=== PATIENT | female | born 1965 | race Caucasian/White ===

== ENCOUNTER 2024-04-03 03:23 | Inpatient (IN) | payer OTHER ==
[2024-04-03] MEDS: SODIUM CHLORIDE 0.9% 1,000 ML IV STA (03:56)
[2024-04-03] MEDS: METOCLOPRAMIDE 5 MG/ML 2 ML VIAL IVP STA (03:56)
[2024-04-03] MEDS: ACETAMINOPHEN IV (For NPO) 1,000 MG in EMPTY BAG 1 BAG IVPB ONE (03:58)
[2024-04-03] MEDS: HYDROmorphone 0.5 MG/0.5 ML SYRINGE IVP STA ×2 (03:58→06:29)
--- NOTE | 2024-04-03 04:02 | ED ---
General Adult HPI - General Chief complaint: Headache Stated complaint: Neuro Time Seen by Provider: 04/03/24 03:27 Source: patient, RN notes reviewed, old records reviewed Mode of arrival: wheelchair Limitations: no limitations - History of Present Illness Initial comments: 58-year-old female presenting with headache for the past 1 week. Patient was s een by primary care and CT as well as CT angiography was ordered to rule out hemorrhage. Patient states that 1 week ago she developed sudden onset severe headache with associated nausea and vomiting. This is a frontal headache and has been constant since that time. Patient denies focal numbness or weakness. She denies fever. Denies respiratory symptoms. Denies vision changes. Denies prior history of aneurysm or intracranial hemorrhage. - Related Data Allergies Allergy/AdvReac Type Severity Reaction Status Date / Time No Known Allergies Allergy Verified 04/03/24 03:33 Review of Systems ROS Statement: Those systems with pertinent positive or pertinent negative responses have been documented in the HPI. ROS Other: All systems not noted in ROS Statement are negative. Past Medical History Past Medical History: Hyperlipidemia History of Any Multi-Drug Resistant Organisms: None Reported Past Surgical History: Cholecystectomy, Orthopedic Surgery Past Psychological History: Anxiety Smoking Status: Former smoker Past Alcohol Use History: None Reported Past Drug Use History: None Reported General Exam Limitations: no limitations General appearance: alert, in no apparent distress Head exam: Present: atraumatic, normocephalic Eye exam: Present: normal appearance, PERRL ENT exam: Present: normal exam Neck exam: Present: normal inspection. Absent: tenderness, meningismus Respiratory exam: Present: normal lung sounds bilaterally. Absent: respiratory distress, wheezes Cardiovascular Exam: Present: regular rate, normal rhythm GI/Abdominal exam: Present: soft. Absent: distended, tenderness, guarding Neurological exam: Present: alert, oriented X3, CN II-XII intact. Absent: motor sensory deficit Psychiatric exam: Present: normal affect, normal mood Skin exam: Present: warm, dry, intact. Absent: cyanosis, diaphoretic Course Vital Signs 04/03/24 04/03/24 03:28 05:37 Temperature 98.3 F Pulse Rate 81 81 Respiratory 18 18 Rate Blood Pressure 172/118 157/82 O2 Sat by Pulse 96 94 L Oximetry Medical Decision Making - Medical Decision Making Was pt. sent in by a medical professional or institution (, PA, SPEAKING UNIT ASSEMBLER, urgent care, hospital, or half-way...) When possible be specific @ -No Did you speak to anyone other than the patient for history (EMS, parent, family, police, friend...)? What history was obtained from this source @ -No Did you review nursing and triage notes (agree or disagree)? Why? @ -I reviewed and agree with nursing and triage notes Were old charts reviewed (outside hosp., previous admission, EMS record, old EKG, old radiological studies, urgent care reports/EKG's, half-way records)? Report findings @ -No old charts were reviewed Differential Headache: Migraine, tension, cluster, carbon monoxide, central venous thrombosis, pension karma temporal arteritis, acute closure glaucoma, intercranial hemorrhage, mastoiditis, sinusitis, head injury, this is not meant to be an all-inclusive list. EKG interpreted by me (3pts min.). @ -As above X-rays interpreted by me (1pt min.). @ -None done CT interpreted by me (1pt min.). @CT brain negative for intracranial hemorrhage, CT angiography of the [place] negative for aneurysm U/S interpreted by me (1pt. min.). @ -None done What testing was considered but not performed or refused? (CT, X-rays, U/S, labs)? Why? @ -None What meds were considered but not given or refused? Why? @ -None Did you discuss the management of the patient with other professionals (professionals i.e. LAUREN Salguero, SPEAKING UNIT ASSEMBLER, lab, RT, psych nurse, social insurance analyst, missionary coordinator, teacher, marketing officer, complex case manager)? Give summary @ -EMH Was smoking cessation discussed for >3mins.? @ -No Was critical care preformed (if so, how long)? @ -No Were there social determinants of health that impacted care today? How? (Homelessness, low income, unemployed, alcoholism, drug addiction, transportation, low edu. Level, literacy, decrease access to med. care, snf, rehab)? @ -No Was there de-escalation of care discussed even if they declined (Discuss DNR or withdrawal of care, Hospice)? DNR status @ -No What co-morbidities impacted this encounter? (DM, HTN, Smoking, COPD, CAD, Cancer, CVA, ARF, Chemo, Hep., AIDS, mental health diagnosis, sleep apnea, morbid obesity)? @ -None Was patient admitted / discharged? Hospital course, mention meds given and route, prescriptions, significant lab abnormalities, going to OR and other pertinent info. @ --year-old female presenting with severe headache which began 1 week ago [id number]. Patient does not have prior headache history. She was seen by her primary care and outpatient CT and CT angiography of the [place] was ordered however the patient was unable to schedule these tests and was having severe symptoms. No focal neurologic findings on exam. Initial blood pressure is quite elevated. CT and CT angiography are ordered which are negative for intracranial hemorrhage and negative for aneurysmal change. Patient continues to be symptomatic with moderate to severe headache in the emergency department. She will be admitted for symptom control and neurology consultation. Undiagnosed new problem with uncertain prognosis? @ -No Drug Therapy requiring intensive monitoring for toxicity (Heparin, Nitro, In sulin, Cardizem)? @ -No Were any procedures done? @ -No Diagnosis/symptom? @Severe headache Acute, or Chronic, or Acute on Chronic? @ -[Acute Uncomplicated (without systemic symptoms) or Complicated (systemic symptoms)? @ -Default Side effects of treatment? @ -No Exacerbation, Progression, or Severe Exacerbation? @ -No Poses a threat to life or bodily function? How? (Chest pain, [place], [place], pneumonia, PE, COPD, DKA, ARF, appy, cholecystitis, CVA, Diverticulitis, Homicidal, Suicidal, threat to staff... and all critical care pts) @ -Moderate risk, new onset severe headache - Lab Data Result diagrams: 04/03/24 04:10 04/03/24 04:10 Lab Results 04/03/24 04/03/24 04/03/24 Range/Units 04:10 04:10 04:10 WBC 14.5 H (3.8-10.6) k/uL RBC 5.07 (3.80-5.40) m/uL Hgb 15.7 (11.4-16.0) gm/dL Hct 48.1 H (34.0-46.0) % MCV 94.9 (80.0-100.0) fL MCH 30.9 (25.0-35.0) pg MCHC 32.6 (31.0-37.0) g/dL RDW 12.9 (11.5-15.5) % Plt Count 285 (150-450) k/uL MPV 7.9 Neutrophils % 73 % Lymphocytes % 20 % Monocytes % 4 % Eosinophils % 2 % Basophils % 1 % Neutrophils # 10.6 H (1.3-7.7) k/uL Lymphocytes # 2.9 (1.0-4.8) k/uL Monocytes # 0.5 (0-1.0) k/uL Eosinophils # 0.2 (0-0.7) k/uL Basophils # 0.1 (0-0.2) k/uL PT 10.1 (10.0-12.5) sec INR 0.9 (<1.2) APTT 21.8 L (22.0-30.0) sec Sodium 139 (137-145) mmol/L Potassium 3.9 (3.5-5.1) mmol/L Chloride 104 (98-107) mmol/L Carbon Dioxide 27 (22-30) mmol/L Anion Gap 8 mmol/L BUN 22 H (7-17) mg/dL Creatinine 0.57 (0.52-1.04) mg/dL Est GFR (CKD-EPI)AfAm >90 (>60 ml/min/1.73 sqM) Est GFR (CKD-EPI)NonAf >90 (>60 ml/min/1.73 sqM) Glucose 117 H (74-99) mg/dL Calcium 9.2 (8.4-10.2) mg/dL Magnesium 1.9 (1.6-2.3) mg/dL Total Bilirubin 0.5 (0.2-1.3) mg/dL AST 23 (14-36) U/L ALT 33 (4-34) U/L Alkaline Phosphatase 84 (38-126) U/L Total Protein 6.8 (6.3-8.2) g/dL Albumin 4.2 (3.5-5.0) g/dL Disposition Clinical Impression: Headache, Intractable headache Dis[facility] Condition: Stable Is patient prescribed a controlled substance at d/c from ED?: No Referrals: Castillo Brower DO [Primary Care Provider] - 1-2 days Time of Disposition: 06:16
[2024-04-03 04:28] LABS: Basophils # (A) 0.1 k/uL (0-0.2); Basophils % (A) 1 %; Eosinophils # (A) 0.2 k/uL (0-0.7); Eosinophils % (A) 2 %; HCT 48.1 % (34.0-46.0); HGB 15.7 gm/dL (11.4-16.0); Lymphocytes # (A) 2.9 k/uL (1.0-4.8); Lymphocytes % (A) 20 %; MCH 30.9 pg (25.0-35.0); MCHC 32.6 g/dL (31.0-37.0); MCV 94.9 fL (80.0-100.0); Mean Platelet Volume 7.9; Monocytes # (A) 0.5 k/uL (0-1.0); Monocytes % (A) 4 %; Neutrophils # (A) 10.6 k/uL (1.3-7.7); Neutrophils % (A) 73 %; Platelet Count 285 k/uL (150-450); RBC 5.07 m/uL (3.80-5.40); RDW 12.9 % (11.5-15.5); WBC 14.5 k/uL (3.8-10.6)
[2024-04-03 04:37] LABS: ALT 33 U/L (4-34); AST 23 U/L (14-36); African American GFR (CKD) >90 (>60 ml/min/1.73 sqM); Albumin 4.2 g/dL (3.5-5.0); Alkaline Phosphatase 84 U/L (38-126); Anion Gap 8 mmol/L; Blood Urea Nitrogen 22 mg/dL (7-17); Calcium 9.2 mg/dL (8.4-10.2); Carbon Dioxide 27 mmol/L (22-30); Chloride 104 mmol/L (98-107); Glucose 117 mg/dL (74-99); Magnesium 1.9 mg/dL (1.6-2.3); Non-African American GFR(CKD) >90 (>60 ml/min/1.73 sqM); Potassium 3.9 mmol/L (3.5-5.1); Sodium 139 mmol/L (137-145); Total Bilirubin 0.5 mg/dL (0.2-1.3); Total Protein 6.8 g/dL (6.3-8.2)
[2024-04-03 04:40] LABS: INR 0.9 (<1.2); Prothrombin Time 10.1 sec (10.0-12.5)
[2024-04-03 04:46] LABS: Partial Thromboplastin Time 21.8 sec (22.0-30.0)
--- NOTE | 2024-04-03 05:36 | CT ---
EXAM: CT Head Without Intravenous Contrast CLINICAL HISTORY: ITS.REASON CT Reason: Headache severe TECHNIQUE: Axial computed tomography images of the head/brain without intravenous contrast. CTDI is 48.9 mGy and DLP is 1222 mGy-cm. This CT exam was performed using one or more of the following dose reduction techniques: automated exposure control, adjustment of the mA and/or kV according to patient size, and/or use of iterative reconstruction technique. COMPARISON: No relevant prior studies available. FINDINGS: Brain: No hemorrhage or mass effect. Ventricles: No hydrocephalus. Bones/joints: Unremarkable. Soft tissues: Unremarkable. Sinuses: No air fluid level. Mastoid air cells: Clear. IMPRESSION: No acute hemorrhage, hydrocephalus, or mass effect.
--- NOTE | 2024-04-03 06:02 | CT ---
EXAMINATION TYPE: CT angio [place] DATE OF EXAM: 04/03/2024 4:53 AM COMPARISON: CT brain earlier today HISTORY: Severe headache with nausea and vomiting CT DLP: 1226 mGycm Automated exposure control for dose reduction was used. TECHNIQUE: Performed with IV Contrast, patient injected with 100 mL of Isovue 300. 3D reconstructed images are created on an independent workstation and reviewed.. FINDINGS: Vertebral arteries are patent to the basilar junction. Right vertebral artery is dominant. Hypoplasti c right P1 segment with filling of the right P2 segment due to patent right-sided posterior communica ting artery. Hypoplastic or poorly visualized anterior communicating artery. No large vessel occlusio n at level of [place]. The [place] cerebral veins are noted. IMPRESSION: NO LARGE VESSEL OCCLUSION OR ANEURYSM AT THE LEVEL OF THE [place]. [facility], , 04/03/2024 6:00 AM
[2024-04-03] MEDS ORDERED: NALOXONE 0.4 MG/ML 1 ML VIAL IV PRN (06:12)
[2024-04-03] MEDS ORDERED: HYDROmorphone 0.5 MG/0.5 ML SYRINGE IVP PRN (06:12)
[2024-04-03] MEDS: SODIUM CHLORIDE 0.9% 1,000 ML IV SCH (06:29)
[2024-04-03] MEDS: MAGNESIUM SULFATE-D5W PMX 1 GM in DEXTROSE/WATER 1 100ML.BAG IVPB ONE (06:30)
[2024-04-03 07:29] LABS: Influenza A Not Detected (Not Detectd); Influenza B Not Detected (Not Detectd); RSV Not Detected (Not Detectd)
[2024-04-03] MEDS: HYDROmorphone 1 MG/ML 1 ML SYRINGE IVP PRN (09:15)
[2024-04-03] MEDS ORDERED: HYDROcodone/APAP 5-325MG 1 EACH TAB PO PRN (11:17)
[2024-04-03] MEDS ORDERED: diphenhydrAMINE 50 MG/ML 1 ML VIAL IVP PRN (11:23)
[2024-04-03] MEDS: diphenhydrAMINE 50 MG/ML 1 ML VIAL IVP STA (11:47)
[2024-04-03] MEDS: BUTALB/APAP/CAFF 50-325-40MG TAB PO PRN (11:47)
[2024-04-03] MEDS: METOCLOPRAMIDE 5 MG/ML 2 ML VIAL IVP PRN (11:47)
[2024-04-03 12:17] LABS: Glucose,Whole Blood 119 mg/dL (70-110)
[2024-04-03] MEDS: INSULIN LISPRO (HumaLOG) 100 UNIT/ML 10 mL VL SQ SCH (12:19)
--- NOTE | 2024-04-03 12:19 | P.HPIM ---
History of Present Illness This is a pleasant 58 years old female with past medical history of multiple problems as below Presents because of headache of 10-day duration, rated as 10/10 per patient on the front of her head radiating to the back of the neck felt like severe and tense with no specification. Improved with cold compresses She denies fall or confusion no weakness tingling numbness. No blurred vision or slurred speech However 10 days ago she had some double vision that lasted for 1 hour only She is complaining also from nausea which make her difficult for her to eat No specific GI or symptoms. No chest pain or dyspnea She denies smoking alcohol or illicit drugs She is afebrile, blood pressure stable Labs showing mild leukocytosis of 14.5 Rest of CBC, INR, BMP and LFT unremarkable ESR is normal at 9 and CRP less than 0.5. Influenza A and type B, RSV, SARS (coronavirus) are undetected CT of the [place] showing no vessel occlusion or aneurysm CT of the brain is negative Review of Systems Review of systems CONSTITUTIONAL: No fever, no malaise, no fatigue. HEENT: No recent visual problems or hearing problems. Denied any sore throat. CARDIOVASCULAR: No orthopnea, PND, no palpitations, no syncope. PULMONARY: No shortness of breath, no cough, no hemoptysis. GASTROINTESTINAL: No diarrhea, no nausea, no vomiting, no abdominal pain. Normoactive bowel sounds. NEUROLOGICAL: No headaches, no weakness, no numbness. HEMATOLOGICAL: Denies any bleeding or petechiae. GENITOURINARY: Denies any burning micturition, frequency, or urgency. MUSCULOSKELETAL/RHEUMATOLOGICAL: Denies any joint pain, swelling, or any muscle pain. ENDOCRINE: Denies any polyuria or polydipsia. Past Medical History Past Medical History: Hyperlipidemia Additional Past Medical History / Comment(s): Diabetes type 2 History of Any Multi-Drug Resistant Organisms: None Reported Past Surgical History: Cholecystectomy, Orthopedic Surgery Additional Past Surgical History / Comment(s): fusion in neck. Past Psychological History: Anxiety Smoking Status: Former smoker Past Alcohol Use History: None Reported Past Drug Use History: None Reported Medications and Allergies Home Medications Medication Instructions Recorded Confirmed Type Atorvastatin [Lipitor] 20 mg PO HS 04/03/24 04/03/24 History Citalopram Hydrobromide [CeleXA] 40 mg PO DAILY 04/03/24 04/03/24 History Levothyroxine Sodium [Synthroid] 112 mcg PO DAILY 04/03/24 04/03/24 History Meloxicam [Mobic] 15 mg PO DAILY 04/03/24 04/03/24 History sitaGLIPtin [Januvia] 100 mg PO HS 04/03/24 04/03/24 History Allergies Allergy/AdvReac Type Severity Reaction Status Date / Time No Known Allergies Allergy Verified 04/03/24 06:47 Physical Exam Vitals: Vital Signs Temp Pulse Pulse Resp BP BP Pulse Ox 04/03/24 07:20 98.4 F 72 16 136/79 95 04/03/24 06:37 82 18 166/94 96 04/03/24 05:37 81 18 157/82 94 L 04/03/24 03:28 98.3 F 81 18 172/118 96 Intake and Output 04/02/24 04/03/24 04/03/24 22:59 06:59 14:59 Other: Voiding Method Toilet Weight 104.326 kg 104.326 kg GENERAL: The patient is alert and oriented x3, not in any acute distress. Well developed, well nourished. HEENT: Pupils are round and equally reacting to light. EOMI. No scleral icterus. No conjunctival pallor. Normocephalic, atraumatic. No pharyngeal erythema. No thyromegaly. CARDIOVASCULAR: S1 and S2 present. No murmurs, rubs, or gallops. PULMONARY: Chest is clear to auscultation, no wheezing , no crackles. ABDOMEN: Soft, nontender, nondistended, normoactive bowel sounds. No palpable organomegaly. MUSCULOSKELETAL: No joint swelling or deformity. EXTREMITIES: No cyanosis, clubbing, or pedal edema. NEUROLOGICAL: Gross neurological examination did not reveal any focal deficits. SKIN: No rashes. no petechiae. Results CBC & Chem 7: 04/03/24 04:10 04/03/24 04:10 Labs: Abnormal Lab Results - Last 24 Hours (Table) 04/03/24 04/03/24 04/03/24 Range/Units 04:10 04:10 04:10 WBC 14.5 H (3.8-10.6) k/uL Hct 48.1 H (34.0-46.0) % Neutrophils # 10.6 H (1.3-7.7) k/uL APTT 21.8 L (22.0-30.0) sec BUN 22 H (7-17) mg/dL Glucose 117 H (74-99) mg/dL Assessment and Plan Assessment: Severe headache, present on admission Nausea with loss of appetite Type 2 diabetes mellitus Hyperlipidemia Anxiety Obesity with BMI of 37.1 Plan: Patient admitted with normal saline 75 mL/h and neurology consult She was placed on IV Dilaudid as needed Will try to switch her to oral like Fioricet, Tylenol and [place] together with Tegretol and Benadryl. Neurology consult on the case Labs and medication were reviewed.. Continue same treatment. Continue with symptomatic treatment. Resume home medication. Monitor labs and vitals. DVT and GI prophylaxis. Further recommendations as per clinical course of the patient DVT prophylaxis: Subcutaneous heparin GI Prophylaxis: Pepcid Physical therapy: Pending Prognosis is guarded
[2024-04-03] MEDS: CITALOPRAM HYDROBROMIDE 20 MG TAB PO SCH (12:42)
[2024-04-03] MEDS: LEVOTHYROXINE 112 MCG TAB PO SCH (12:42)
--- NOTE | 2024-04-03 16:11 | P.CNNES ---
History of Present Illness Consult date: 04/03/24 Requesting physician: Charan Pitts Reason for Consult: intractable severe headache History of Present Illness: This is a 58-year-old woman who presented emergency department because of severe headache. She is accompanied with her was at bedside. She stated that her headache started on March 22, 2023 and it seems at that time she feels the whole head is painful but mostly in the bilateral frontal and she stated it severe it is 10/10 and its squeezing pressure headache that is intermittent and she is having recurrent nausea and vomiting. She is also associated with blurry vision. Does have photophobia with denies any phonophobia. Denies any history of migraines. Denies any radiation other than just the whole head but mostly in the bilateral frontal. No clear associated things are improving her condition or worsening it. Denies any focal weakness, numbness, speech difficulty, difficulty swallowing. Denies any fever. She stated that her colleague at work was sick with the flu and she thinks she was exposed to her but again other than that she denies feeling sick. She feels the headache is drastically better today and its close to a 0. Denies any similar headaches in the past. Denies any head trauma or falls. Having depression. Some of the workup during this hospital visit consisted of: Patient is afebrile White blood cell is 14.5 ESR is 9 CRP is less than 0.5 Sodium, calcium, magnesium, creatinine are within normal limits Initial serum glucose is 117 Influenza A/B/RSV/SARS COVID [address] of the head is reported as no acute hemorrhage, hydrocephalus or mass effect. I personally reviewed the CT and agree with the report CT angiography of the head and neck is reported as no large vessel occlusion or aneurysm at the level of scleral loss. Past Medical History Past Medical History: Hyperlipidemia Additional Past Medical History / Comment(s): Diabetes type 2 History of Any Multi-Drug Resistant Organisms: None Reported Past Surgical History: Cholecystectomy, Orthopedic Surgery Additional Past Surgical History / Comment(s): fusion in neck. Past Psychological History: Anxiety Smoking Status: Former smoker Past Alcohol Use History: None Reported Past Drug Use History: None Reported Medications and Allergies Home Medications Medication Instructions Recorded Confirmed Type Atorvastatin [Lipitor] 20 mg PO HS 04/03/24 04/03/24 History Citalopram Hydrobromide [CeleXA] 40 mg PO DAILY 04/03/24 04/03/24 History Levothyroxine Sodium [Synthroid] 112 mcg PO DAILY 04/03/24 04/03/24 History Meloxicam [Mobic] 15 mg PO DAILY 04/03/24 04/03/24 History sitaGLIPtin [Januvia] 100 mg PO HS 04/03/24 04/03/24 History Allergies Allergy/AdvReac Type Severity Reaction Status Date / Time No Known Allergies Allergy Verified 04/03/24 06:47 Physical Examination - Vital Signs Vital Signs: Vital Signs Temp Pulse Pulse Resp BP BP Pulse Ox 04/03/24 13:55 98.5 F 82 16 124/73 95 04/03/24 07:20 98.4 F 72 16 136/79 95 04/03/24 06:37 82 18 166/94 96 04/03/24 05:37 81 18 157/82 94 L 04/03/24 03:28 98.3 F 81 18 172/118 96 Intake and Output 04/03/24 04/03/24 04/03/24 06:59 14:59 22:59 Intake Total 118 Balance 118 Intake: Oral 118 Other: Voiding Method Toilet # Voids 2 Weight 104.326 kg 104.326 kg GENERAL: The patient is lying in bed and is not in acute distress. HENT: Supple neck. NEUROLOGICAL: Higher mental function: The patient is awake, alert, oriented to self, place and time. Patient is following commands. No aphasia and no neglect. Cranial nerves: The pupils are round, equal and reactive to light and accommodation. Visual [place] are full to confrontation throughout. Extraocular movement is intact no nystagmus is noted. Facial sensation is normal to touch throughout. The facial strength is normal throughout. Hearing is normal bilaterally to hand rub. Tongue is midline and moved [id number] without any difficulty. No dysarthria is noted. Shoulder shrug is normal bilaterally. Motor: The strength is 5 over 5 throughout. Normal tone and bulk. Cerebellum: Normal finger to nose bilaterally. Sensation: Sensation is normal to touch throughout. Reflexes (right/left): 2+ throughout. Plantars are downgoing bilaterally. Results - Laboratory Findings CBC and BMP: 04/03/24 04:10 04/03/24 04:10 Abnormal Lab Findings: Abnormal Labs 04/03/24 04/03/24 04/03/24 04:10 04:10 04:10 WBC 14.5 H Hct 48.1 H Neutrophils # 10.6 H APTT 21.8 L BUN 22 H Glucose 117 H POC Glucose (mg/dL) 04/03/24 12:15 WBC Hct Neutrophils # APTT BUN Glucose POC Glucose (mg/dL) 119 H Assessment and Plan Assessment: This is a 58-year-old woman who presented emergency department because of severe headache since March 22, 2023. She states that she does not have a history of headaches at baseline and the headache is 10/10. She has been also it has been associate with nausea vomiting and blurred vision. CT of the head and CT angiography of the head is unremarkable. Acute cephalgia unknown cause. CT of the head and CT angiography of the head are unremarkable. Rule out any other secondary cause--currently headache is drastically better. Plan: I ordered MRI of the brain with and without. I ordered TSH, vitamin B12. If MRI of the brain is unremarkable then recommend pursuing lumbar puncture with opening closing pressure. Does not seem encephalitis or meningitis patient is afebrile. I feel the slight leukocytosis likely due to dehydration because of the nausea Will defer the rest of the medical management to primary and other specialist Plan discussed with the patient, her was at bedside and her nurse Thank for the consultation Time with Patient: Greater than 30
[2024-04-03 17:18] LABS: Glucose,Whole Blood 91 mg/dL (70-110)
[2024-04-03 20:22] LABS: Glucose,Whole Blood 133 mg/dL (70-110)
[2024-04-03] MEDS: LINAGLIPTIN 5 MG TABLET PO SCH (21:15)
[2024-04-03] MEDS: ACETAMINOPHEN TAB 325 MG TAB PO PRN (21:15)
[2024-04-03] MEDS: ATORVASTATIN 20 MG TAB PO SCH (21:15)
[2024-04-03] MEDS: HEPARIN SODIUM,PORCINE 5,000 UNIT/ML 1 ML VIAL SQ SCH (21:15)
[2024-04-03] MEDS: FAMOTIDINE 20 MG/2 ML VIAL IV SCH (21:15)
[2024-04-04 06:03] LABS: Glucose,Whole Blood 104 mg/dL (70-110)
[2024-04-04 12:08] LABS: Glucose,Whole Blood 97 mg/dL (70-110)
--- NOTE | 2024-04-04 13:16 | P.PN ---
Subjective This is a pleasant 58 years old female with past medical history of multiple problems as below Presents because of headache of 10-day duration, rated as 10/10 per patient on the front of her head radiating to the back of the neck felt like severe and tense with no specification. Improved with cold compresses She denies fall or confusion no weakness tingling numbness. No blurred vision or slurred speech However 10 days ago she had some double vision that lasted for 1 hour only She is complaining also from nausea which make her difficult for her to eat No specific GI or symptoms. No chest pain or dyspnea She denies smoking alcohol or illicit drugs She is afebrile, blood pressure stable Labs showing mild leukocytosis of 14.5 Rest of CBC, INR, BMP and LFT unremarkable ESR is normal at 9 and CRP less than 0.5. Influenza A and type B, RSV, SARS (coronavirus) are undetected CT of the [place] showing no vessel occlusion or aneurysm CT of the brain is negative 04/04/2024 Patient still complaining from headache, last night she had severe headache episode of migraine as she states that she requires medication but she feels better today with rating about 5-6/10 in severity Patient also states that the nausea bothering her but the current medication of Reglan helping her and she request to increase the dose. Neurology service on the case and they considered MRI of the brain and if it was unremarkable they may consider lumbar puncture. Patient has been on normal saline since admission, her vitals look stable and she tolerates diet therefore we are going to discontinue IV fluid in case might contribute to her headache Objective - Vital Signs Vital signs: Vital Signs Temp 98.3 F 04/04/24 07:00 Pulse 77 04/04/24 07:00 Resp 16 04/04/24 07:00 BP 139/78 04/04/24 07:00 Pulse Ox 92 L 04/04/24 07:00 FiO2 Intake & Output 04/03/24 04/04/24 04/04/24 18:59 06:59 18:59 Intake Total 358 Balance 358 Weight 104.326 kg Intake: Oral 358 Other: Voiding Method Toilet Toilet # Voids 2 3 - Exam GENERAL: The patient is alert and oriented x3, not in any acute distress. Well developed, well nourished. HEENT: Pupils are round and equally reacting to light. EOMI. No scleral icterus. No conjunctival pallor. Normocephalic, atraumatic. No pharyngeal erythema. No thyromegaly. CARDIOVASCULAR: S1 and S2 present. No murmurs, rubs, or gallops. PULMONARY: Chest is clear to auscultation, no wheezing , no crackles. ABDOMEN: Soft, nontender, nondistended, normoactive bowel sounds. No palpable organomegaly. MUSCULOSKELETAL: No joint swelling or deformity. EXTREMITIES: No cyanosis, clubbing, or pedal edema. NEUROLOGICAL: Gross neurological examination did not reveal any focal deficits. SKIN: No rashes. no petechiae. - Labs CBC & Chem 7: 04/03/24 04:10 04/03/24 04:10 Labs: Abnormal Lab Results - Last 24 Hours (Table) 04/03/24 Range/Units 20:20 POC Glucose (mg/dL) 133 H (70-110) mg/dL Assessment and Plan Assessment: Severe headache, present on admission Nausea with loss of appetite Type 2 diabetes mellitus Hyperlipidemia Anxiety Obesity with BMI of 37.1 Plan: Discontinue normal saline 75 mL/h and neurology consult, they ordered MRI of the brain which is pending now She was placed on IV Dilaudid as needed Will try to switch her to oral like Fioricet, Tylenol and [place] together with Tegretol and Benadryl. 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 Continue same treatment. Continue with symptomatic treatment. Resume home medication. Monitor labs and vitals. DVT and GI prophylaxis. Further recommendations as per clinical course of the patient DVT prophylaxis: Subcutaneous heparin GI Prophylaxis: Pepcid Physical therapy: Pending Prognosis is guarded
--- NOTE | 2024-04-04 13:54 | MR ---
EXAMINATION TYPE: MR brain wo/w con DATE OF EXAM: 04/04/2024 COMPARISON: CT brain from 1 day earlier HISTORY: Severe headache, vision changes. TECHNIQUE: Multiplanar, multisequence images of the brain and brainstem is performed without and with IV contras t, utilizing 10 mL intravenous Gadobutrol . FINDINGS: Diffusion weighted images demonstrate no evidence of a recent infarct or other diffusion ab normality. There is mild ventricular and sulcal prominence redemonstrated. There are a few small sca ttered foci of T2 hyperintensity throughout the white matter bilaterally. For reference there is a 10 mm posterior left frontal lobe lesion axial image 22 noted. Lesions are nonspecific in appearance an d distribution. Midline structures demonstrate normal morphology. The craniocervical junction appears within normal limits. Post contrast images demonstrate no abnormal enhancement. The dural venous sinuses appear pa tent. The lungs are intact bilaterally. Mild mucosal thickening involving bilateral ethmoid sinuses. Nasal septum is deviated to right of midline. IMPRESSION: No MRI evidence for recent infarct. There is mild diffuse age-related cerebral atrophy an d nonspecific white matter changes. No abnormal enhancement is seen. [facility], , 04/04/2024 1:51 PM
[2024-04-04] MEDS: HYDROmorphone 0.5 MG/0.5 ML SYRINGE IVP PRN (14:17)
[2024-04-04] MEDS: METOCLOPRAMIDE 5 MG/ML 2 ML VIAL IVP STA (14:44)
--- NOTE | 2024-04-04 14:52 | P.PN ---
Subjective Progress Note Date: 04/04/24 I am following-up with patient and she stated her headache came back that was severe and resolved with pain medications. Currently she feels she is doing well. Objective - Vital Signs Vital signs: Vital Signs Temp 98.8 F 04/04/24 14:10 Pulse 78 04/04/24 14:10 Resp 15 04/04/24 14:10 BP 147/84 04/04/24 14:10 Pulse Ox 97 04/04/24 14:10 FiO2 Intake & Output 04/03/24 04/04/24 04/04/24 18:59 06:59 18:59 Intake Total 358 Balance 358 Weight 104.326 kg Intake: Oral 358 Other: Voiding Method Toilet Toilet Toilet # Voids 2 3 4 - Exam GENERAL: The patient is lying in bed and is not in acute distress. HENT: Supple neck. NEUROLOGICAL: Higher mental function: The patient is awake, alert, oriented to self, place and time. Patient is following commands. No aphasia and no neglect. Cranial nerves: The pupils are round, equal and reactive to light and accommodation. I attempted fundoscopy but somewhat limited but from limitation no papilledema noted. Visual pollock are full to confrontation throughout. Extraocular movement is intact no nystagmus is noted. Facial sensation is normal to touch throughout. The facial strength is normal throughout. Hearing is normal bilaterally to hand rub. Tongue is midline and moved [id number] without any difficulty. No dysarthria is noted. Shoulder shrug is normal bilaterally. Motor: The strength is 5 over 5 throughout. Normal tone and bulk. Cerebellum: Normal finger to nose bilaterally. Sensation: Sensation is normal to touch throughout. Some of the workup during this hospital visit consisted of: Patient is afebrile White blood cell is 14.5 ESR is 9 TSH: 1.85, vitamin B12: 383. CRP is less than 0.5 Sodium, calcium, magnesium, creatinine are within normal limits Initial serum glucose is 117 Influenza A/B/RSV/SARS COVID [address] of the head is reported as no acute hemorrhage, hydrocephalus or mass effect. I personally reviewed the CT and agree with the report CT angiography of the head and neck is reported as no large vessel occlusion or aneurysm at the level of scleral loss. - Labs CBC & Chem 7: 04/03/24 04:10 04/03/24 04:10 Labs: Abnormal Lab Results - Last 24 Hours (Table) 04/03/24 Range/Units 20:20 POC Glucose (mg/dL) 133 H (70-110) mg/dL Assessment and Plan Assessment: This is a 58-year-old woman who presented emergency department because of severe headache since March 22, 2023. She states that she does not have a history of headaches at baseline and the headache is 10/10. She has been also it has been associate with nausea vomiting and blurred vision. CT of the head and CT angiography of the head is unremarkable. Acute cephalgia unknown cause. CT of the head and CT angiography of the head are unremarkable. Rule out any other secondary cause--currently headache is drastically better. Plan: Pending. MRI of the brain with and without If MRI of the brain is unremarkable then recommend pursuing lumbar puncture with opening closing pressure. Does not seem encephalitis or meningitis patient is afebrile. I feel the slight leukocytosis likely due to dehydration because of the nausea Will defer the rest of the medical management to primary and other specialist Plan discussed with the patient, her was at bedside. Time with Patient: Less than 30
[2024-04-04] MEDS: SODIUM CHLORIDE 0.9% 1,000 ML IV ONE (15:47)
--- NOTE | 2024-04-04 15:50 | P.PCN ---
Date of Procedure: 04/04/24 Description of Procedure: PREOPERATIVE DIAGNOSIS: Headaches POSTOPERATIVE DIAGNOSIS: Headaches PROCEDURE: Lumbar puncture SURGEON: Bahman Hewitt ANESTHESIA: Local with 3 mL of 1% lidocaine; IV sedation : None EBL: None. Specimens removed: 12 mL of CSF Opening CSF pressure : 28 Closing CSF pressure : 15 Complications: None PROCEDURE INDICATION: Ms. Alfaro is a 58-year-old female with history of sudden onset of headaches with normal CT, and MRI brain. Neurologist consulted to rule out underlying cause for intractable headaches, requested for CSF analysis with opening and closing pressures. She got subcutaneous heparin 5000 units at 9:15 AM on 04/04/2024. Procedure description : Patient was seen and identified . had informed consent from patient. Positioned in left lateral position. Patient's lumbar spine area exposed and cleaned with ChloraPrep 2. Timeout completed. Critical pause was taken, and sterile drapes applied. 3 mL of 1% lidocaine used for skin and subcutaneous tissue at L3-L4 interspinous space. After that using 22-gauge 3.5 inch spinal needle used to enter the interspinous space with 1 attempt without any difficulty. CSF collected, 3 mL each tube 4. Needle removed intact. And Band-Aid applied. RN requested to do 1 L of fluid over 30 minutes time if no contraindications to minimize post dural puncture headache. Complications: None Patient is hemodynamically stable throughout the procedure. Disposition: After the procedure patient was given instructions regarding lying down on her back, and recommended to drink plenty of fluids along with IV fluids. Instructions were given to the RN to monitor her vitals, and neurochecks to rule out any spinal spinal hematoma. RN was given instruction no heparin for at least 2 hours after the procedure.
[2024-04-04 16:26] LABS: Appearance,CSF Clear; CSF Tube Number 4; CSF Tube Volume 3.5
[2024-04-04 17:00] LABS: Glucose,CSF 57 mg/dL (40-70); Total Protein,CSF 74 mg/dL (12-60)
[2024-04-04 17:09] LABS: Glucose,Whole Blood 117 mg/dL (70-110)
[2024-04-04 17:27] LABS: Nucleated Cells, CSF 1 u/L (0-5); Red Blood Cell,CSF 4 u/L (0-10)
[2024-04-04] MEDS: METOCLOPRAMIDE 5 MG/ML 2 ML VIAL IVP PRN (17:46)
[2024-04-04 20:36] LABS: Glucose,Whole Blood 84 mg/dL (70-110)
[2024-04-04] MEDS: TOPIRAMATE 25 MG TAB PO SCH (20:46)
[2024-04-04] MEDS ORDERED: acetaZOLAMIDE 250 MG TAB PO SCH (21:00)
[2024-04-05 05:59] LABS: Glucose,Whole Blood 91 mg/dL (70-110)
[2024-04-05 08:38] LABS: Basophils # (A) 0.07 X 10*3/uL (0.00-0.10); Basophils % (A) 0.6 %; Eosinophils # (A) 0.35 X 10*3/uL (0.04-0.35); Eosinophils % (A) 3.2 %; HCT 42.6 % (37.2-46.3); HGB 13.9 g/dL (12.0-15.0); Lymphocytes # (A) 4.08 X 10*3/uL (0.90-5.00); Lymphocytes % (A) 37.3 %; MCH 31.3 pg (27.0-32.0); MCHC 32.6 g/dL (32.0-37.0); MCV 95.9 FL (80.0-97.0); Mean Platelet Volume 10.5 FL (9.5-12.2); Monocytes # (A) 0.64 X 10*3/uL (0.20-1.00); Monocytes % (A) 5.9 %; NRBC Per 100 WBC 0 X 10*3/uL (0.00-0.01); Neutrophils # (A) 5.78 X 10*3/uL (1.80-7.70); Neutrophils % (A) 52.8 %; Platelet Count 258 X 10*3/uL (140-440); RBC 4.44 X 10*6/uL (4.10-5.20); RDW 12.3 % (11.5-14.5); WBC 10.94 X 10*3/uL (4.50-10.00)
[2024-04-05 09:10] LABS: Carbon Dioxide 24.3 mmol/L (21.6-31.8); Chloride 107 mmol/L (96-109); Glucose 95 mg/dL (70-110); Potassium 4.2 mmol/L (3.5-5.5); Sodium 142 mmol/L (135-145)
[2024-04-05 09:11] LABS: BUN/Creat Ratio 17.17 Ratio (12.00-20.00); Blood Urea Nitrogen 10.3 mg/dL (9.0-27.0)
[2024-04-05] MEDS ORDERED: hydrALAZINE HCL 25 MG TAB PO PRN (10:14)
[2024-04-05] MEDS: amLODIPine 5 MG TAB PO SCH (11:13)
[2024-04-05 12:21] LABS: Glucose,Whole Blood 124 mg/dL (70-110)
--- NOTE | 2024-04-05 13:03 | P.PN ---
Subjective This is a pleasant 58 years old female with past medical history of multiple problems as below Presents because of headache of 10-day duration, rated as 10/10 per patient on the front of her head radiating to the back of the neck felt like severe and tense with no specification. Improved with cold compresses She denies fall or confusion no weakness tingling numbness. No blurred vision or slurred speech However 10 days ago she had some double vision that lasted for 1 hour only She is complaining also from nausea which make her difficult for her to eat No specific GI or symptoms. No chest pain or dyspnea She denies smoking alcohol or illicit drugs She is afebrile, blood pressure stable Labs showing mild leukocytosis of 14.5 Rest of CBC, INR, BMP and LFT unremarkable ESR is normal at 9 and CRP less than 0.5. Influenza A and type B, RSV, SARS (coronavirus) are undetected CT of the [place] showing no vessel occlusion or aneurysm CT of the brain is negative 04/04/2024 Patient still complaining from headache, last night she had severe headache episode of migraine as she states that she requires medication but she feels better today with rating about 5-6/10 in severity Patient also states that the nausea bothering her but the current medication of Reglan helping her and she request to increase the dose. Neurology service on the case and they considered MRI of the brain and if it was unremarkable they may consider lumbar puncture. Patient has been on normal saline since admission, her vitals look stable and she tolerates diet therefore we are going to discontinue IV fluid in case might contribute to her headache 04/05 Patient feels headache is better today about 4/10. She thinks Fioricet is helping her. Also Topamax was started yesterday at 50 mg twice daily. Patient and found her to give prescription of Fioricet upon discharge. Also they plan to follow-up with a neurologist as an outpatient. MRI of the brain was negative. Lumbar puncture was done yesterday and showed increased pressure at 28 cm. CAT scan of the spine is ordered and is pending for now Possible discharge 24 to 48 hours Objective - Vital Signs Vital signs: Vital Signs Temp 98.6 F 04/05/24 07:00 Pulse 79 04/05/24 09:38 Resp 16 04/05/24 08:45 BP 134/84 04/05/24 12:41 Pulse Ox 100 04/05/24 07:00 FiO2 Intake & Output 04/04/24 04/05/24 04/05/24 18:59 06:59 18:59 Other: Voiding Method Toilet Toilet Toilet # Voids 4 2 - Exam GENERAL: The patient is alert and oriented x3, not in any acute distress. Well developed, well nourished. HEENT: Pupils are round and equally reacting to light. EOMI. No scleral icterus. No conjunctival pallor. Normocephalic, atraumatic. No pharyngeal erythema. No thyromegaly. CARDIOVASCULAR: S1 and S2 present. No murmurs, rubs, or gallops. PULMONARY: Chest is clear to auscultation, no wheezing , no crackles. ABDOMEN: Soft, nontender, nondistended, normoactive bowel sounds. No palpable organomegaly. MUSCULOSKELETAL: No joint swelling or deformity. EXTREMITIES: No cyanosis, clubbing, or pedal edema. NEUROLOGICAL: Gross neurological examination did not reveal any focal deficits. SKIN: No rashes. no petechiae. - Labs CBC & Chem 7: 04/05/24 05:24 04/05/24 05:24 Labs: Abnormal Lab Results - Last 24 Hours (Table) 04/04/24 04/04/24 04/05/24 Range/Units 15:11 17:07 05:24 WBC 10.94 H (4.50-10.00) X 10*3/uL POC Glucose (mg/dL) 117 H (70-110) mg/dL CSF Total Protein 74 H (12-60) mg/dL 04/05/24 Range/Units 12:20 WBC (4.50-10.00) X 10*3/uL POC Glucose (mg/dL) 124 H (70-110) mg/dL CSF Total Protein (12-60) mg/dL Microbiology - Last 24 Hours (Table) 04/04/24 15:11 CSF Gram Stain - Preliminary Cerebral Spinal Fluid Assessment and Plan Assessment: Severe headache, present on admission Nausea with loss of appetite Type 2 diabetes mellitus Hyperlipidemia Anxiety Obesity with BMI of 37.1 Plan: neurology consult, MRI of the brain w is reviewed. Continue Fioricet and Topamax Status post lumbar puncture with elevated level. CT of the spine is pending Will try to switch her to oral like Fioricet, Tylenol and [place] together with Tegretol and Benadryl. 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 Continue same treatment. Continue with symptomatic treatment. Resume home medication. Monitor labs and vitals. DVT and GI prophylaxis. Further recommendations as per clinical course of the patient DVT prophylaxis: Subcutaneous heparin GI Prophylaxis: Pepcid Physical therapy: Pending Prognosis is guarded
--- NOTE | 2024-04-05 15:23 | P.PN ---
Subjective Progress Note Date: 04/05/24 I am following-up with patient and had MRI Brain which was unremarkable for acute process. Had CSF study and slightly elevated opening pressure of 28 and closing was 15. Today the patient feels headache is better. Denies any new neurological issues. Objective - Vital Signs Vital signs: Vital Signs Temp 98.6 F 04/05/24 07:00 Pulse 75 04/05/24 13:03 Resp 16 04/05/24 08:45 BP 163/90 04/05/24 13:03 Pulse Ox 100 04/05/24 07:00 FiO2 Intake & Output 04/04/24 04/05/24 04/05/24 18:59 06:59 18:59 Other: Voiding Method Toilet Toilet Toilet # Voids 4 2 - Exam GENERAL: The patient is lying in bed and is not in acute distress. HENT: Supple neck. NEUROLOGICAL: Higher mental function: The patient is awake, alert, oriented to self, place and time. Patient is following commands. No aphasia and no neglect. Cranial nerves: The pupils are round, equal and reactive to light and accommodation. I attempted fundoscopy but somewhat limited but from limitation no papilledema noted. Visual pollock are full to confrontation throughout. Extraocular movement is intact no nystagmus is noted. Facial sensation is normal to touch throughout. The facial strength is normal throughout. Hearing is normal bilaterally to hand rub. Tongue is midline and moved [id number] without any difficulty. No dysarthria is noted. Shoulder shrug is normal bilaterally. Motor: The strength is 5 over 5 throughout. Normal tone and bulk. Cerebellum: Normal finger to nose bilaterally. Sensation: Sensation is normal to touch throughout. Some of the workup during this hospital visit consisted of: Patient is afebrile White blood cell is 14.5 ESR is 9 TSH: 1.85, vitamin B12: 383. CRP is less than 0.5 Sodium, calcium, magnesium, creatinine are within normal limits Initial serum glucose is 117 Influenza A/B/RSV/SARS COVID [address] of the head is reported as no acute hemorrhage, hydrocephalus or mass effect. I personally reviewed the CT and agree with the report CT angiography of the head and neck is reported as no large vessel occlusion or aneurysm at the level of scleral loss. MRI Brain: No MRI evidence for recent infarct. There is mild diffuse age- related cerebral atrophy and nonspeicific white matter changes. No abnormal enhancement is seen. CSF opening pressure 28 and cosing pressure 15. CSF clear, colorless, rbc 4, nucleated cell 1, glucose 57, protein 74. - Labs CBC & Chem 7: 04/05/24 05:24 04/05/24 05:24 Labs: Abnormal Lab Results - Last 24 Hours (Table) 04/04/24 04/04/24 04/05/24 Range/Units 15:11 17:07 05:24 WBC 10.94 H (4.50-10.00) X 10*3/uL POC Glucose (mg/dL) 117 H (70-110) mg/dL CSF Total Protein 74 H (12-60) mg/dL 04/05/24 Range/Units 12:20 WBC (4.50-10.00) X 10*3/uL POC Glucose (mg/dL) 124 H (70-110) mg/dL CSF Total Protein (12-60) mg/dL Microbiology - Last 24 Hours (Table) 04/04/24 15:11 CSF Gram Stain - Preliminary Cerebral Spinal Fluid Assessment and Plan Assessment: This is a 58-year-old woman who presented emergency department because of severe headache since March 22, 2023. She states that she does not have a history of headaches at baseline and the headache is 10/10. She has been also it has been associate with nausea vomiting and blurred vision. CT of the head and CT angiography of the head is unremarkable. Acute cephalgia unknown cause. CT of the head, CT angiography of head and MRI Brain of the head are unremarkable. Has slightly elevated opening pressure of 28--currently headache is drastically better. Plan: I started the patient on Topamax 50mg bid and in one week if continues to have headache go up to 100mg bid. Is a weak carbonic anhydrase inhibitor. Ordered CT Cervical, thoracic and lumbar w/ and w/o to rule out any other causes leading to headache. Will defer the rest of the medical management to primary and other specialist Plan discussed with the patient, her was at bedside. Also discussed with primary attending. By tomorrow, if above is negative and headache continue to be improving, then clear for discharge. Time with Patient: Less than 30
--- NOTE | 2024-04-05 15:39 | CT ---
CT cervical and thoracic spine with and without contrast. HISTORY: Headache with elevated pressure, rule out mass spine. COMPARISON: None TECHNIQUE: Multiple axial images are obtained through the cervical and thoracic spine with and withou t contrast. FINDINGS: CT cervical spine: The craniovertebral junction relationships and prevertebral soft tissues are normal. There is loss of the normal cervical lordosis. There is mild degenerative disease at the C4-5 and C5-6 levels where there is mild disc space narrowi ng and spondylosis There is anterior and interbody fusion of C6 and C7. There is no bony encroachment of the cervical ca nal. There is a small to moderate posterior midline disc per complex at the C3-C4 level resulting in mild to moderate mass effect on the anterior thecal sac. There is a broad-based disc bulge at the C4- 5 disc resulting in mild mass effect on the ventral aspect of thecal sac. There is hypertrophic spurr ing posteriorly at the C5-6 level resulting in mild to moderate mass effect on the ventral aspect the tasha sac. Neuroforamina are patent. The facet joints are intact. There is minimal degeneration of the uncoverte bral joints in the lower cervical spine. CT thoracic spine: The thoracic vertebral segments are normal in height and alignment and there is no fracture or sublux ation. There are no focal osseous abnormalities. There is minimal degenerative disease in the mid thoracic spine where there is mild anterior spondylo sis. There is no thoracic spinal stenosis or thoracic disc herniation. The neural foramina appear patent. IMPRESSION: 1. Cervical fusion at C6-7. 2. Mild degenerative disc disease in at the C3-4, C4-5 and C5-6 levels as described above. Loss of th e normal cervical lordosis. 3. Unremarkable thoracic spine. [facility], , 04/05/2024 3:37 PM
[2024-04-05 17:28] LABS: Glucose,Whole Blood 86 mg/dL (70-110)
[2024-04-05 20:47] LABS: Glucose,Whole Blood 145 mg/dL (70-110)
[2024-04-06 05:59] LABS: Glucose,Whole Blood 111 mg/dL (70-110)
[2024-04-06 08:45] VITALS: BP 150/90; PULSE 77; RESP 17; TEMP 97.9
[2024-04-06 12:12] LABS: Glucose,Whole Blood 107 mg/dL (70-110)
--- NOTE | 2024-04-06 15:04 | P.PN ---
Subjective Progress Note Date: 04/06/24 I am following-up with patient and she stated overnight at around 2ish am had severe headache. But now headache is drastically better. She feels overall her headache is drastically better compared to initial presentation and agrees. Objective - Vital Signs Vital signs: Vital Signs Temp 97.9 F 04/06/24 07:00 Pulse 77 04/06/24 07:00 Resp 17 04/06/24 14:00 BP 150/90 04/06/24 07:00 Pulse Ox 97 04/06/24 07:00 FiO2 Intake & Output 04/05/24 04/06/24 04/06/24 18:59 06:59 18:59 Intake Total 478 Balance 478 Intake: Oral 478 Other: Voiding Method Toilet Toilet # Voids 5 2 - Exam GENERAL: The patient is sitting on a recliner chair and is not in acute distress. HENT: Supple neck. NEUROLOGICAL: Higher mental function: The patient is awake, alert, oriented to self, place and time. Patient is following commands. No aphasia and no neglect. Cranial nerves: The pupils are round, equal and reactive to light and accommodation. I attempted fundoscopy but somewhat limited but from limitation no papilledema noted. Visual pollock are full to confrontation throughout. Extraocular movement is intact no nystagmus is noted. Facial sensation is normal to touch throughout. The facial strength is normal throughout. Hearing is normal bilaterally to hand rub. Tongue is midline and moved [id number] without any difficulty. No dysarthria is noted. Shoulder shrug is normal bilaterally. Motor: The strength is 5 over 5 throughout. Normal tone and bulk. Cerebellum: Normal finger to nose bilaterally. Sensation: Sensation is normal to touch throughout. Some of the workup during this hospital visit consisted of: Patient is afebrile White blood cell is 14.5 ESR is 9 TSH: 1.85, vitamin B12: 383. CRP is less than 0.5 Sodium, calcium, magnesium, creatinine are within normal limits Initial serum glucose is 117 Influenza A/B/RSV/SARS COVID [address] of the head is reported as no acute hemorrhage, hydrocephalus or mass effect. I personally reviewed the CT and agree with the report CT angiography of the head and neck is reported as no large vessel occlusion or aneurysm at the level of scleral loss. MRI Brain: No MRI evidence for recent infarct. There is mild diffuse age- related cerebral atrophy and nonspeicific white matter changes. No abnormal enhancement is seen. CSF opening pressure 28 and cosing pressure 15. CSF clear, colorless, rbc 4, nucleated cell 1, glucose 57, protein 74. CT cervical and thoracic spine w/ and w/o: cervical fusion C6-C7. Mild degerative disc dz at C3-C4, C4-C5 and C5-C6. Unremarkable thoracic spine. - Labs CBC & Chem 7: 04/05/24 05:24 04/05/24 05:24 Labs: Abnormal Lab Results - Last 24 Hours (Table) 04/05/24 04/06/24 Range/Units 20:46 05:58 POC Glucose (mg/dL) 145 H 111 H (70-110) mg/dL Microbiology - Last 24 Hours (Table) 04/04/24 15:11 CSF Gram Stain - Preliminary Cerebral Spinal Fluid CSF Culture - Preliminary Assessment and Plan Assessment: This is a 58-year-old woman who presented emergency department because of severe headache since March 22, 2023. She states that she does not have a history of headaches at baseline and the headache is 10/10. She has been also it has been associate with nausea vomiting and blurred vision. CT of the head and CT angiography of the head is unremarkable. Acute cephalgia unknown cause. CT of the head, CT angiography of head and MRI Brain of the head are unremarkable. Has slightly elevated opening pressure of 28--currently headache is drastically better. Plan: I started the patient on Topamax 50mg bid on 5and in one week if continues to have headache go up to 100mg bid. Is a weak carbonic anhydrase inhibitor. Recommend Gabapentin 300mg 1 tab tid PRN and fioricet PRN. Will defer the rest of the medical management to primary and other specialist Upon discharge, recommend the patient to follow-up with neurologist and Ophthamologist as outpatient within 2-3 weeks. Otherwise, no additional neurological work-up. Will sign off. Please reconsult if needed. Time with Patient: Less than 30
--- NOTE | 2024-04-06 23:49 | P.DS ---
Providers Date of admission: 04/03/24 06:19 Attending physician: Dottie Guzman Consults: 04/03/24 06:12 Consult Physician Routine Consulting Provider: Teresita Woo Consult Reason/Comments: Intractable severe headache, no prior headache history Do you want consulting provider notified?: Yes Primary care physician: Castillo Inocente [facility] Course: Diagnosis: Severe headache, present on admission. Significantly improved upon discharge Nausea with loss of appetite, improved Type 2 diabetes mellitus Hyperlipidemia Anxiety Obesity with BMI of 37.1 Hospital course: This is a pleasant 58 years old female with past medical history of multiple problems as below Presents because of headache of 10-day duration, rated as 10/10 per patient on the front of her head radiating to the back of the neck felt like severe and tense with no specification. Improved with cold compresses. Patient evaluated by neurology service. Patient had extensive workup including MRI of the brain which was negative for acute process as well as CT of the head which also was showing no acute process. Then she underwent lumbar puncture showing mildly elevated pressure at 28 and eventually she went to CAT scan of the spine i ncluding cervical thoracic and lumbar which was unremarkable for acute process to explain the patient presentation of the headache. Patient was treated symptomatically and Topamax was added as well as a Fioricet and Benadryl and Zofran upon patient request as she is showedsignificant improvement today. Her headache was 1-3/10 in severity. Patient was very happy and satisfied with the results as well as the at bedside. Patient denies any other neurological symptoms and no vision problems upon discharge. Patient was eager to go home today. As per neurologist patient was prescribed Fioricet, Topamax 50 mg twice daily with the recommendation to increase it after 1 week to 10 mg twice daily as well as gabapentin as needed for the headache. Patient denies any other complaint. Patient was cleared for discharge by neurology service. Patient also given return to work note for about 1 week per recommendation of neurologist. Problems and management plan were discussed with the patient and he verbalized understanding and acceptance Patient was found stable and can be discharged home in guarded prognosis however he needs follow-up as an outpatient. Patient was instructed to follow up with PCP Dr. Leach within one week and patient agrees Patient instructed to follow-up with neurologist and Dr. Mcdowell it was suggested and to follow-up in 2 weeks. Patient agrees and states that this is his neurologist as well Physical exam Gen: patient is a AAOx3, no distress CVS: S1-S2, RRR, no murmur Lungs: B/L CTA, no wheezing Abdomen: soft, no distention, no tenderness, positive bowel sounds Extremity: no leg edema or induration Time spent more than 35 minutes Patient Condition at Discharge: Stable Plan - Discharge Summary Discharge Rx Participant: No New Discharge Prescriptions: New Butalb/APAP/Caff 50-325-40Mg [Fioricet 50-325-40] 1 each PO Q4HR PRN #100 tab PRN Reason: Headache amLODIPine [Norvasc] 5 mg PO DAILY #30 tab Topiramate [Topamax] 50 mg PO BID #60 tab Topiramate [Topamax] 50 mg PO BID PRN 7 Days #14 tablet PRN Reason: Headache Gabapentin [Neurontin] 300 mg PO TID PRN #60 cap PRN Reason: Pain Continue sitaGLIPtin [Januvia] 100 mg PO HS Citalopram Hydrobromide [CeleXA] 40 mg PO DAILY Atorvastatin [Lipitor] 20 mg PO HS Levothyroxine Sodium [Synthroid] 112 mcg PO DAILY No Action Meloxicam [Mobic] 15 mg PO DAILY Discharge Medication List Atorvastatin [Lipitor] 20 mg PO HS 04/03/24 [History] Citalopram Hydrobromide [CeleXA] 40 mg PO DAILY 04/03/24 [History] Levothyroxine Sodium [Synthroid] 112 mcg PO DAILY 04/03/24 [History] Meloxicam [Mobic] 15 mg PO DAILY 04/03/24 [History] sitaGLIPtin [Januvia] 100 mg PO HS 04/03/24 [History] Butalb/APAP/Caff 50-325-40Mg [Fioricet 50-325-40] 1 each PO Q4HR PRN #100 tab 04/06/24 [Rx] Gabapentin [Neurontin] 300 mg PO TID PRN #60 cap 04/06/24 [Rx] Topiramate [Topamax] 50 mg PO BID #60 tab 04/06/24 [Rx] Topiramate [Topamax] 50 mg PO BID PRN 7 Days #14 tablet 04/06/24 [Rx] amLODIPine [Norvasc] 5 mg PO DAILY #30 tab 04/06/24 [Rx] Follow up Appointment(s)/Referral(s): Castillo Brower DO [Primary Care Provider] - 1-2 days Mk Hull MD [Medical Doctor] - 2 Weeks Patient Instructions/Handouts: Migraine Headache (ED), Migraine Headache (GEN) Activity/Diet/Wound Care/Special Instructions: heart healthy diet activity is restricted till you see your doctor FOLLOW UP FOR WORSENING SYMPTOMS, PROBLEMS, OR CONCERNS. FOLLOW UP WITH OPTHALOLOGIST SUGGESTED BY DR HELTON Discharge Disposition: HOME SELF-CARE
== END 2024-04-06 16:14 | disposition home or self-care (01) | DRG 103 ==
LOC: EC 03:23 → 6NMEDSUR 06:18 → OBSVTOIN 06:19 → 6NMEDSUR 06:20
PROVIDERS: ADMIT Hospitalist; ATTEND Hospitalist
PROC: 009U3ZX Drainage of Spinal Canal, Percutaneous Approach, Diagnostic (ICD-10-PCS; principal; 2024-04-04 15:15)
DX: G43.909 Migraine, unspecified, not intractable, without status migrainosus (principal); E11.9 Type 2 diabetes mellitus without complications; E66.9 Obesity, unspecified; F32.A Depression, unspecified; Z11.52 Encounter for screening for COVID-19; E78.5 Hyperlipidemia, unspecified; F41.9 Anxiety disorder, unspecified; Z68.37 Body mass index [BMI] 37.0-37.9, adult; Z79.1 Long term (current) use of non-steroidal anti-inflammatories (NSAID); Z79.84 Long term (current) use of oral hypoglycemic drugs; Z79.890 Hormone replacement therapy; Z79.899 Other long term (current) drug therapy; Z87.891 Personal history of nicotine dependence; Z90.49 Acquired absence of other specified parts of digestive tract
CPT/HCPCS: 36415; 62270; 70450; 70496; 70553; 72127; 72130; 80048; 80053; 82607; 82945; 83735; 83873; 84157; 84443; 85025; 85610; 85652; 85730; 86140; 87070; 87205; 87636; 88108; 89050; 96361; 96365; 96375; 96376; 99285